=== PATIENT | female | born 2000 | race African-American/Black ===

== ENCOUNTER 2024-02-09 23:12 | Emergency (ER) | payer BC ==
[2024-02-10 00:52] LABS: Specific Gravity 1.011 (1.005-1.030); Sqamous Epithelial <5 /HPF (None Seen); Urine Bacteria None Seen /HPF (<20); Urine Bilirubin NEGATIVE (Negative); Urine Blood Negative (Negative); Urine Clarity Turbid (Clear); Urine Color Colorless (Yellow); Urine Culture Reflex Order NOT NEEDED; Urine Glucose NEGATIVE (Negative); Urine Ketones NEGATIVE (Negative); Urine Microscopic Reflex YN ORDER UMIC; Urine Nitrite NEGATIVE (Negative); Urine Protein NEGATIVE (Negative); Urine RBC <5 /HPF (None Seen); Urine Urobilinogen Normal (Normal); Urine WBC <5 /HPF (<5)
[2024-02-10 01:30] LABS: SARS-CoV-2 Antigen CONTROL BLUE LINE VIS/BG OK; SARS-CoV-2 Antigen Rapid Res Negative (Negative)
--- NOTE | 2024-02-10 05:14 | ER ---
Nurse's Notes [facility] Name: Ludy Hernandez Age: 23 yrs Sex: Female : 2000 Arrival Date: 02/09/2024 Time: 23:12 Bed 12 Private MD: Diagnosis: Acute Viral Gastroenteritis Presentation: 02/09 00:00 Chief complaint: Patient states: tonsils are irritated and sore throat, vomiting, and vc1 SOB times one week. 00:00 Coronavirus screen: Client denies travel out of the [place] in the last 14 days. At this vc1 time, the client does not indicate any symptoms associated with coronavirus-19. Ebola Screen: Patient negative for fever greater than or equal to 101.5 degrees Fahrenheit, and additional compatible Ebola Virus Disease symptoms Patient denies exposure to infectious person. Patient denies travel to an Ebola-affected area in the 21 days before illness onset. No symptoms or risks identified at this time. Initial Sepsis Screen: Does the patient meet any 2 criteria? No. Patient's initial sepsis screen is negative. Does the patient have a suspected source of infection? No. Patient's initial sepsis screen is negative. Risk Assessment: Do you want to hurt yourself or someone else? Patient reports no desire to harm self or others. Onset of symptoms is unknown. 00:00 Method Of Arrival: Ambulatory vc1 00:00 Acuity: JUNE 3 vc1 Triage Assessment: 00:00 General: Appears in no apparent distress. uncomfortable, ill, slender, well groomed, vc1 well developed, well nourished, Behavior is calm, cooperative, appropriate for age. Pain: Complains of pain in left aspect of posterior pharynx and right aspect of posterior pharynx Pain does not radiate. Pain currently is 5 out of 10 on a pain scale. Quality of pain is described as sharp. EENT: Reports pain when swallowing. Neuro: Level of Consciousness is awake, alert, obeys commands, Oriented to person, place, time, situation, Appropriate for age. Cardiovascular: Heart tones S1 S2 present Capillary refill < 3 seconds Patient's skin is warm and dry. Respiratory: Airway is patent Respiratory effort is even, unlabored, Respiratory pattern is regular, symmetrical, Breath sounds are clear bilaterally. GI: No deficits noted. No signs and/or symptoms were reported involving the gastrointestinal system. : No deficits noted. No signs and/or symptoms were reported regarding the genitourinary system. Derm: Skin is intact, is healthy with good turgor, Skin is dry, Skin is normal, Skin temperature is warm. Musculoskeletal: Circulation, motion, and sensation intact. Range of motion: intact in all extremities. 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 - Infectious Disease History:: Denies. - Social history:: Smoking status: Patient denies any tobacco usage or history of. Screenin:00 [facility] ED Fall Risk Assessment (Adult) History of falling in the last 3 months, vc1 including since admission No falls in past 3 months (0 pts) Confusion or Disorientation No (0 pts) Intoxicated or Sedated No (0 pts) Impaired Gait No (0 pts) Mobility Assist Device Used No (0 pt) Altered Elimination No (0 pt) Score/Fall Risk Level 0 - 2 = Low Risk Oriented to surroundings, Maintained a safe environment, Educated pt \T\ family on fall prevention, incl call for assistance when getting out of bed. Abuse screen: Denies threats or abuse. Nutritional screening: No deficits noted. Tuberculosis screening: No symptoms or risk factors identified. Assessment: 02:58 Reassessment: Patient appears in no apparent distress at this time. No changes from vc1 previously documented assessment. Patient and/or family updated on plan of care and expected duration. Pain level reassessed. Patient is alert, oriented x 3, equal unlabored respirations, skin warm/dry/pink. Vital Signs: 00:00 BP 134 / 79; Pulse 65; Resp 18; Temp 98.3; Pulse Ox 100% ; Weight 68.04 kg; Height 5 vc1 ft. 3 in. ; Pain 5/10; 02:30 BP 119 / 72; Pulse 71; Resp 15; Pulse Ox 100% ; vc1 00:00 Body Mass Index 26.57 (68.04 kg, 160.02 cm) vc1 00:00 Pain Scale: Adult vc1 ED Course: 02/08 23:16 Patient arrived in ED. [id number] 23:33 Gaye Hawkins FNP-C is [facility]. kb 23:33 Shiv Valle MD is Attending Physician. kb 02/09 00:00 Arm band placed on right wrist. vc1 00:00 Patient has correct armband on for positive identification. Bed in low position. Call vc1 light in reach. Pulse ox on. NIBP on. 02:51 Triage completed. vc1 02:54 No provider procedures requiring assistance completed. Patient did not have IV access vc1 during this emergency room visit. 02:58 Beulah Young, RN is Primary Nurse. vc1 Administered Medications: No medications were administered Medication: 02:55 VIS not applicable for this client. vc1 Outcome: 05:14 Discharge ordered by . sp4 05:58 Discharged to home ambulatory, vc1 05:58 Condition: good 05:58 Discharge instructions given to patient, Instructed on discharge instructions, 05:59 Patient left the ED. vc1 Signatures: Gaye Hawkins FNP-C HAND BOBBIN CLEANER-CkAmarilis Molina [id number] Beulah Young, RN RN vc1 Shiv Valle MD MD sp4 Corrections: (The following items were deleted from the chart) 02:52 00:00 Allergies: No Known Allergies; vc1 vc1
--- NOTE | 2024-02-10 05:15 | EDPHYS ---
Physician Documentation [facility] Name: Ludy Hernandez Age: 23 yrs Sex: Female : 2000 Arrival Date: 02/09/2024 Time: 23:12 Bed 12 Private MD: ED Physician Shiv Valle HPI: 02/09 00:08 This 23 yrs old Black Female presents to ER via Unassigned with complaints of Swollen kb Glands, Sore Throat, Shortness Of Breath, Nausea/Vomiting. 00:08 Pt is a 23 year old female who presents for sore throat, cough, congestion for one kb week. Reports vomiting on Thursday. denies fever, diarrhea. Aggravated by swallowing, no alleviating factors. . 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 - Infectious Disease History:: Denies. - Social history:: Smoking status: Patient denies any tobacco usage or history of. ROS: 00:08 Constitutional: As per HPI kb Exam: 00:11 Constitutional: This is a well developed, well nourished patient who is awake, alert, kb and in no acute distress. Head/Face: Normocephalic, atraumatic. ENT: Moist Mucous membranes Cardiovascular: Regular rate Respiratory: Respirations even and unlabored. No increased work of breathing. Talking in full sentences Abdomen/GI: Soft, non-tender. No distention Skin: Warm, dry with normal turgor. Normal color. MS/ Extremity: Pulses equal, no cyanosis. Neurovascular intact. Full, normal range of motion. Neuro: Awake and alert, GCS 15, oriented to person, place, time, and situation. 00:11 ENT: Posterior pharynx: erythema, that is mild, kb Vital Signs: 00:00 BP 134 / 79; Pulse 65; Resp 18; Temp 98.3; Pulse Ox 100% ; Weight 68.04 kg; Height 5 vc1 ft. 3 in. ; Pain 5/10; 02:30 BP 119 / 72; Pulse 71; Resp 15; Pulse Ox 100% ; vc1 00:00 Body Mass Index 26.57 (68.04 kg, 160.02 cm) vc1 00:00 Pain Scale: Adult vc1 MDM: 02/08 23:33 Medical Screening Exam initiated 02/09 00:08 Data reviewed: vital signs, nurses notes. 00:12 Differential diagnosis: flu, covid, uri, strep, uti. Historians other than the Patient: kb Spouse/Significant Other: sig other. 00:54 Transition of care: After a detail discussion of the patient's case, care is kb transferred to Shiv Valle MD. 02/09 00:13 Order name: Urinalysis w/ reflexes; Complete Time: 00:52 kb 02/09 00:13 Order name: Test, Urine; Complete Time: 00:53 kb 02/09 00:13 Order name: Flu; Complete Time: 04:04 kb 02/09 00:13 Order name: Strep; Complete Time: 04:04 kb 02/09 00:13 Order name: SARS-COV-2 Antigen Rapid; Complete Time: 04:04 kb 02/09 01:33 Order name: Throat Culture EDMS Administered Medications: No medications were administered Disposition: 05:13 Co-signature as Attending Physician, Shiv Valle MD I agree with the assessment sp4 and plan of care. I reviewed the patient's care provided by Advanced Practice Provider \T\ agree w/ the diagnosis \T\ care plan. I personally saw the pt \T\ performed a substantive portion of the visit, incldng all aspects of the (History/Exam/Medical Decision Making). Disposition Summary: 02/10/24 05:14 Discharge Ordered Notes: Location: Home sp4 Problem: new sp4 Symptoms: have improved sp4 Condition: Stable sp4 Diagnosis - Acute Viral Gastroenteritis sp4 Followup: sp4 - With: Private Physician - When: As needed - Reason: Recheck today's complaints Discharge Instructions: - Discharge Summary Sheet sp4 - Viral Gastroenteritis, Adult, [id number] sp4 Forms: - Patient Portal Instructions sp4 Signatures: Dispatcher [employer] EDMS Gaye Hawkins FNP-C FNP-Ckb Calcote, Vanessa, RN RN vc1 Shiv Valle MD MD sp4 Corrections: (The following items were deleted from the chart) 00:11 00:08 Pt is a 23 year old female who presents for sore throat, cough, congestion for kb one week. Reports vomiting on Thursday. denies fever, diarrhea. Aggravated by swallowing, no alleviating factors. . kb 02:52 00:00 Allergies: No Known Allergies; vc1 vc1
[2024-02-10 06:05] VITALS: TEMP 98.3; O2SAT 100
[2024-02-10 06:06] VITALS: BP 119/72
== END 2024-02-10 05:59 | disposition home or self-care (01) ==
LOC: ER 23:12
DX: A08.4 Viral intestinal infection, unspecified (principal); Z11.52 Encounter for screening for COVID-19
CPT/HCPCS: 36415; 81001; 81025; 87070; 87081; 87804; 87811